=== PATIENT | female | born 1955 | race Caucasian/White ===

== ENCOUNTER 2021-01-27 12:17 | Emergency (ER) | payer MEDICARE, MEDICAID ==
[~2021-01-27] VITALS: Ht 154.9 cm; Wt 62.6 kg
[2021-01-27 12:55] LABS: BASO # 0.1 10*3/uL (0.0-0.1); BASO % 1.2 % (0.0-1.0); EOS % 0.3 % (1.0-4.0); HEMATOCRIT 42.3 % (37.0-47.0); LYMPH # 1.2 10*3/uL (1.3-4.4); LYMPH % 20.3 % (27.0-41.0); MEAN CELL VOLUME 79.7 fl (81.0-99.0); MEAN CORPUSCULAR HGB 23.4 pg (27.0-31.0); MEAN CORPUSCULAR HGB CONC 29.3 g/dl (33.0-37.0); MEAN PLATELET VOLUME 10.8 fl (9.6-12.3); MONO # 0.5 10*3/uL (0.1-1.0); MONO % 8.1 % (3.0-9.0); NEUT # 4.1 10*3/uL (2.3-7.9); NEUT % 69.9 % (47.0-73.0); PLATELET COUNT AUTOMATED 255 10*3/uL (130-400); RED BLOOD COUNT 5.31 10*6/uL (4.10-5.10); RED CELL DISTRI WIDTH 18.7 % (0-14.5); WHITE BLOOD COUNT 5.8 10*3/uL (4.8-10.8)
[2021-01-27 12:55] LABS: BILIRUBIN Negative (Negative); BLOOD Negative (Negative); CLARITY Cloudy (Clear); COLOR Yellow (Yellow); GLUCOSE Negative (Negative); KETONE Negative (Negative); LEUKO ESTERASE 3+ (Negative); NITRITE Positive (Negative); PH 5.5 (4.5-8.0); SPECIFIC GRAVITY <= 1.005 (1.001-1.030); UROBILINOGEN 0.2 E.U./dl (0.0-1.0)
[2021-01-27 13:06] LABS: BACTERIA 4+; EPITHELIAL CELLS 21-30; WBC 51-100 wbc/hpf (0-5)
[2021-01-27 13:17] LABS: ALBUMIN 3.1 gm/dl (3.1-4.5); ALKALINE PHOSPHATASE 188 U/L (45-117); BUN 6 mg/dl (7-24); CHLORIDE 104 mmol/L (98-107); CPK 69 U/L (26-192); POTASSIUM 3.2 mmol/L (3.5-5.1); SGOT/AST 69 IU/L (3-35); SGPT/ALT 37 U/L (12-78); SODIUM 138 mmol/L (136-145); TOTAL PROTEIN 7.8 gm/dL (6.4-8.2)
[2021-01-27 13:17] LABS: URINE AMPHETAMINES < 1000 (1000ng/ml); URINE BARBITURATES < 200 (200ng/ml); URINE BENZODIAZEPINES < 200 (200ng/ml); URINE CANNABINOIDS (THC) < 50 (50ng/ml); URINE COCAINE > 300 (300ng/ml); URINE METHADONE < 300 (300ng/ml); URINE OPIATES < 300 (300ng/ml)
[2021-01-27 13:21] LABS: URINE PHENCYCLIDINE < 25 (25ng/ml)
== END 2021-01-27 23:47 ==
LOC: ED 12:17
PROVIDERS: Emergency Medicine
DX: F43.21 Adjustment disorder with depressed mood (principal); Z20.822 Contact with and (suspected) exposure to COVID-19; F19.10 Other psychoactive substance abuse, uncomplicated